=== PATIENT | female | born 1995 | race African-American/Black ===

== ENCOUNTER 2016-08-27 16:54 | Emergency (ER) | payer MEDICAID, OTHER ==
[~2016-08-27] VITALS: Ht 162.6 cm; Wt 110.0 kg
[2016-08-27 16:56] VITALS: BP 140/85; PULSE 86; RESP 15; TEMP 97.9; O2SAT 99
--- NOTE | 2016-08-27 17:05 | PD ---
Physical Exam Time Seen by Provider: 17:04 Narrative 20 y/o female here with 3 days of abdominal pain, R leg pain. vital signs reviewed. Seen at triage desk. Awaiting bed placement. Data Data Last Documented VS Vital Signs Date Time Temp Pulse Resp B/P Pulse Ox O2 Delivery O2 Flow Rate FiO2 08/27/16 16:56 97.9 86 15 140/85 99 MDM Medical Record Reviewed: Yes Supervised Visit with MAYRA: Santiago Stroud August 27, 2016 17:05
[2016-08-27 19:20] VITALS: BP 154/77; PULSE 79; RESP 18; O2SAT 99
--- NOTE | 2016-08-27 19:54 | PD ---
HPI Chief Complaint: Abdominal Pain Time Seen by Provider: 19:24 Travel History International Travel<30 days: No Contact w/Intl Traveler<30days: No Traveled to known affect area: No History of Present Illness HPI Patient is a 20-year-old female presenting to the emergency department for evaluation of several medical complaints. Patient states that her right leg has been hurting. She states this has been going on for several years. Pain is better when she stands up, she does report being under feet all day which makes the pain worse, she denies any redness or edema. Patient also reports abdominal pain. She states the pain is cramping in nature, its been on and off for several months. She initially thought it was related to her menstrual cycle however her menstrual cycles have been irregular since she stopped control in February. Patient does not know if she is , there is a possibility of . She denies any vaginal discharge, odor, dysuria, frequency, pelvic pain. PFSH Past Medical History Medical History: Denies Significant Hx Diminished Hearing: No Tetanus Vaccination: < 5 Years ?: Unknown LMP: 07/2016 Past Surgical History Other Surgery: Yes (adnoids) Social History Alcohol Use: No Tobacco Use: No Substance Use: No Allergies-Medications (Allergen,Severity, Reaction): Coded Allergies: No Known Allergies (Unverified , 08/27/16) Reported Meds & Prescriptions Reported Meds & Active Scripts Active No Active Prescriptions or Reported Medications Review of Systems Except as stated in HPI: all other systems reviewed are Neg HENT: No: Headaches, Lightheadedness Cardiovascular: No: Chest Pain or Discomfort Respiratory: No: Shortness of Breath Gastrointestinal: Positive: Abdominal Pain (intermittently, none currently), No: Nausea, Vomiting, Changes in Bowel Habits Genitourinary: No: Frequency, Dysuria, Pelvic Pain, Flank Pain, Discharge, Vaginal Bleeding Musculoskeletal: Positive: Myalgias Neurologic: No: Weakness, Dizziness Physical Exam Narrative GENERAL: Obese, well-developed, alert female. Resting comfortably in no acute distress. SKIN: Focused skin assessment warm/dry. HEAD: Atraumatic. Normocephalic. EYES: Pupils equal and round. No scleral icterus. No injection or drainage. ENT: No nasal bleeding or discharge. Mucous membranes pink and moist. NECK: Trachea midline. No JVD. CARDIOVASCULAR: Regular rate and rhythm. No murmur appreciated. RESPIRATORY: No accessory muscle use. Clear to auscultation. Breath sounds equal bilaterally. GASTROINTESTINAL: Abdomen soft, non-tender, nondistended. Hepatic and splenic margins not palpable. Positive bowel sounds, no rebound, no guarding. MUSCULOSKELETAL: No obvious deformities. No clubbing. No cyanosis. No edema. Positive pedal pulses bilaterally, brisk less than 3 second capillary refill. NEUROLOGICAL: Awake and alert. No obvious cranial nerve deficits. Motor grossly within normal limits. Normal speech. PSYCHIATRIC: Appropriate mood and affect; insight and judgment normal. Data Data Last Documented VS Vital Signs Date Time Temp Pulse Resp B/P Pulse Ox O2 Delivery O2 Flow Rate FiO2 08/27/16 19:20 79 18 154/77 99 08/27/16 16:56 97.9 [facility] Medical Decision Making Medical Screen Exam Complete: Yes Emergency Medical Condition: Yes Interpretation(s) Vital Signs Date Time Temp Pulse Resp B/P Pulse Ox O2 Delivery O2 Flow Rate FiO2 08/27/16 19:20 79 18 154/77 99 08/27/16 16:56 97.9 86 15 140/85 99 Differential Diagnosis Myalgia versus irritable bowel versus menstrual cramps versus muscle strain versus versus other Narrative Course Patient is a 20-year-old female presenting to the emergency for evaluation of to medical complaint at ongoing for several months if not years. She is currently asymptomatic. Patient is no acute symptoms, she has no acute findings on exam, her abdominal exam is completely benign. Urine was performed in the emergency department due to irregular periods, urine was negative. It is encouraged to follow up with a primary care provider for ongoing evaluation and management. She is advised to return to emergency department for any new or worsening symptoms or if her abdominal pain returns. Patient verbalized understanding of these instructions. Patient stable for discharge. Diagnosis Primary Impression: Normal physical examination Additional Impression: Irregular menses Referrals: [facility] 1 week Patient Instructions: General Instructions Additional Instructions: Follow-up with a primary doctor/[facility] Return to emergency department mainly for any new or worsening symptoms Med/Other Pt SpecificInfo: No Change to Meds Scripts No Active Prescriptions or Reported Meds Disposition: 01 DISCHARGE HOME Condition: Stable Judi Obrien August 27, 2016 19:54
== END 2016-08-27 20:13 | disposition home or self-care (01) ==
LOC: NEPD 16:54
DX: N92.6 Irregular menstruation, unspecified (principal)
CPT/HCPCS: 84703; 99283

== ENCOUNTER 2016-11-10 09:56 | Emergency (ER) | payer MEDICAID ==
[~2016-11-10] VITALS: Ht 162.6 cm; Wt 110.0 kg
[2016-11-10 09:58] VITALS: BP 163/84; PULSE 87; RESP 15; TEMP 98.2; O2SAT 98
--- NOTE | 2016-11-10 11:39 | PD ---
HPI Chief Complaint: [place] Layer Problem/Complaint Time Seen by Provider: 11:33 Travel History International Travel<30 days: No Contact w/Intl Traveler<30days: No Traveled to known affect area: No History of Present Illness HPI 21-year-old female presents emergency department for evaluation of vaginal itching times one week. Patient also reports she noticed a small sore on the left vulva 3 days ago she is unsure if she caused this by scratching the area. She reports is associated with small amounts of whitish discharge. Patient denies abdominal pain, flank pain, dysuria, frequency, urgency, fever or chills. She reports she has unprotected intercourse with the same partner for several years. She is not concerned of an STD. No aggravating or alleviating factors. PFSH Past Medical History Medical History: Denies Significant Hx Diminished Hearing: No Tetanus Vaccination: < 5 Years Influenza Vaccination: No ?: Not LMP: 10/25/16 Past Surgical History Surgical History: No Previous Surgery Other Surgery: Yes (adnoids) Social History Alcohol Use: Yes (ocassionally) Tobacco Use: No (pt denies ) Substance Use: No (pt denies) Allergies-Medications (Allergen,Severity, Reaction): Coded Allergies: No Known Allergies (Unverified , 11/10/16) Reported Meds & Prescriptions Reported Meds & Active Scripts Active No Active Prescriptions or Reported Medications Review of Systems Except as stated in HPI: all other systems reviewed are Neg General / Constitutional: No: Fever Eyes: No: Visual changes HENT: No: Headaches Cardiovascular: No: Chest Pain or Discomfort Respiratory: No: Shortness of Breath Gastrointestinal: No: Abdominal Pain Genitourinary: Positive: Discharge, No: Dysuria Physical Exam Narrative GENERAL: Well-nourished, well-developed patient. SKIN: Focused skin assessment warm/dry. HEAD: Normocephalic. EYES: No scleral icterus. No injection or drainage. NECK: Supple, trachea midline. No JVD or lymphadenopathy. CARDIOVASCULAR: Regular rate and rhythm without murmurs, gallops, or rubs. RESPIRATORY: Breath sounds equal bilaterally. No accessory muscle use. GASTROINTESTINAL: Abdomen soft, non-tender, nondistended. : Patient has a single small circular lesion to the left vulva at the site of vaginal opening this area appears excoriated. Moderate amount of thick white discharge within the vaginal vault. Cervical on his closed. Cervix nonfriable. No CMT. No adnexal mass or tenderness. MUSCULOSKELETAL: No cyanosis, or edema. BACK: Nontender without obvious deformity. No CVA tenderness. Data Data Last Documented VS Vital Signs Date Time Temp Pulse Resp B/P Pulse Ox O2 Delivery O2 Flow Rate FiO2 11/10/16 12:00 97.8 70 16 143/81 99 Room Air Orders Gc And Chlamydia Pcr (11/10/16 11:31) Wet Prep Profile (11/10/16 11:31) Herpes Simplex Virus Culture (11/10/16 11:31) Labs Laboratory Tests Test 11/10/16 11:11 Clue Cells (Wet Prep) NONE SEEN Vaginal Trichomonas (Wet Prep) NONE SEEN Vaginal Yeast (Wet Prep) NONE SEEN MDM Medical Decision Making Medical Screen Exam Complete: Yes Emergency Medical Condition: Yes Differential Diagnosis Genital herpes, vaginal yeast, bacterial vaginosis, less likely GC chlamydia Narrative Course 21-year-old female presents emergency department for evaluation of vaginal itching times one week. Patient became concerned when she noticed a "sore" to the left vaginal opening 3 days ago. She believes she may have caused this by scratching. She reports associated whitish discharge. She denies abdominal pain, flank pain, fever chills. On exam patient has what appears to be excoriation to the left vulva. The area is circular in nature and will be tested for HSV. The area appears more consistent with excoriation from vaginal candidiasis rather than a single HSV lesion. Patient had no cervical motion tenderness area and the cervix was nonfriable. Wet prep, HSV, GC chlamydia pending. Wet prep was negative for clue cells, Trichomonas or yeast. GC chlamydia pending. HSV pending Diagnostic findings were discussed with patient. Patient would like to wait for HSV confirmation prior to treatment. I think this is reasonable. Her physical exam is more consistent with vaginal yeast and HSV. Although the wet prep was negative for yeast patient's physical exam and history are consistent with vaginal he she will be treated with Diflucan. She will be called for positive HSV results. Diagnosis Primary Impression: Vaginal yeast infection Referrals: Ob Gyn Physician Assistant Scripts Fluconazole (Diflucan)150 Mg Lph255 Mg PO ONCE #1 TAB Ref 0 Prov:Lilibeth Flores 11/10/16 Disposition: 01 DISCHARGE HOME Condition: Stable Lilibeth Flores Nov 10, 2016 11:39
[2016-11-10 12:00] VITALS: BP 143/81; PULSE 70; RESP 16; TEMP 97.8; O2SAT 99
[2016-11-10] MEDS ORDERED: DIFL150T PO (12:59)
[2016-11-10 13:05] VITALS: BP 140/78; TEMP 97.8
[2016-11-10 14:05] LABS: CHLAMYDIA PCR NOT DETECTED (NOT DETECT); NEISSERIA PCR NOT DETECTED (NOT DETECT)
== END 2016-11-10 13:05 | disposition home or self-care (01) ==
LOC: NEPD 09:56
DX: B37.3 Candidiasis of vulva and vagina (principal); A60.04 Herpesviral vulvovaginitis
CPT/HCPCS: 87210; 87255; 87491; 87591; 99283

== ENCOUNTER 2017-02-14 09:14 | Emergency (ER) | payer SELFPAY ==
[~2017-02-14] VITALS: Ht 167.6 cm; Wt 123.0 kg
[~2017-02-14 09:14] MED LIST: DIFL150T PO
[2017-02-14 09:17] VITALS: BP 148/79; PULSE 106; RESP 16; TEMP 98.1; O2SAT 96
[2017-02-14 09:47] VITALS: PULSE 83
--- NOTE | 2017-02-14 09:50 | PD ---
HPI Chief Complaint: Musculoskeletal Complaint Time Seen by Provider: 09:33 Travel History International Travel<30 days: No Contact w/Intl Traveler<30days: No Traveled to known affect area: No History of Present Illness HPI 21-year-old female presents to the emergency room for evaluation of left posterior heel pain for the past 2 days. Patient denies trauma or injury. States it started off slight and has gradually but significantly increased in severity. She has been taking Aleve. She went to really appointment with her doctor yesterday. He told her it is likely a heel spur, to take Advil, and to rest it as much as possible. He ordered an outpatient x-ray. Patient states the x-ray facility was closed by the time she left the doctor and they are not open on the weekends. She states the pain was so severe today that she just decided to come to the emergency room. Patient denies chronic medical conditions or daily medications. History Past Medical Histgory LMP: JAN 2017 Social History Alcohol Use: Yes (ocassionally) Tobacco Use: No (pt denies ) Allergies-Medications (Allergen,Severity, Reaction): Coded Allergies: No Known Allergies (Unverified , 11/10/16) Reported Meds & Prescriptions Reported Meds & Active Scripts Active Diflucan (Fluconazole) 150 Mg Tab 150 Mg PO ONCE Review of Systems Except as stated in HPI: all other systems reviewed are Neg Physical Exam Narrative GENERAL: Well-nourished, well-developed female in no acute distress. Afebrile. Ambulatory. SKIN: Focused skin assessment warm/dry. No erythema or ecchymosis. HEAD: Normocephalic. EYES: No scleral icterus. No injection or drainage. NECK: Supple, trachea midline. No JVD or lymphadenopathy. CARDIOVASCULAR: Regular rate and rhythm without murmurs, gallops, or rubs. RESPIRATORY: Breath sounds equal bilaterally. No accessory muscle use. MUSCULOSKELETAL: No cyanosis, or edema. 2+ dorsalis pedis pulse are for admission a left lower extremity. Tenderness to palpation at the insertion of the Achilles tendon. Tendon intact. Data Data Last Documented VS Vital Signs Date Time Temp Pulse Resp B/P (MAP) Pulse Ox O2 Delivery O2 Flow Rate FiO2 02/14/17 09:17 98.1 106 16 148/79 (102) 96 Room Air MDM Medical Screen Exam Complete: Yes Emergency Medical Condition: No Differential Diagnosis Heel spur, contusion, strain, sprain, tendinitis Narrative Course 21-year-old female presents to the emergency room for evaluation of left heel pain for the past 2 days. Patient denies trauma or injury. She has already seen her primary care physician for this and was given orthopedic instructions and an order for outpatient x-rays but she has not had them completed. Patient is ambulatory without significant difficulty. There are no objective physical exam findings. Left lower extremity is neurovascularly intact. Patient was told to rest, take Advil or Aleve, ice, and follow up with her primary care physician as planned. There are no urgent or emergent medical conditions at this time. A medical screening exam was performed: At the time of evaluation the presenting medical condition was determined not to be of an emergent nature. The patient was given the option of receiving additional care, such as crutches , but declined. Patient was given options for additional community resources from which to obtain care. The Patient Has Been advised to seek medical attention for their presenting complaint. The patient has been advised to return to the ER at any time if an emergent condition develops. Primary Impression: Encounter for medical screening examination Disposition: 01 DISCHARGE HOME Condition: Stable Odette Delgadillo Feb 14, 2017 09:50
== END 2017-02-14 09:52 | disposition left against medical advice (07) ==
LOC: NEPK 09:14
DX: M79.672 Pain in left foot (principal)
CPT/HCPCS: 99281